=== PATIENT | female | born 1955 | race Caucasian/White ===

== ENCOUNTER → 2016-10-04 | Outpatient (CLI) | payer OTHER ==
--- NOTE | 2016-10-04 13:56 | DIAGNOSTIC IMAGING REPORT ---
PET/CT CLINICAL HISTORY: Solitary pulmonary nodule. TECHNIQUE: A PET/CT was performed from the skull base through the upper thighs following intravenous injection of 12.89 mCi of F 18 FDG IV. The injection was performed at 8:23 AM on October 04, 2016 and imaging began at 9:26 AM on October 04, 2016. Unenhanced CT was performed for attenuation correction purposes and anatomic localization. CT DOSE: 551.55 mGycm COMPARISON STUDY: None. FINDINGS: Head and neck: No abnormal FDG uptake is identified within the neck. There is no cervical lymphadenopathy. Chest: No thoracic lymphadenopathy is present. There is no abnormal FDG uptake within the chest. Multiple pulmonary nodules are noted, the largest of which is a 1.4 cm left lower lobe nodule shown on image 110. Additional nodules include a 7 mm left lower lobe nodule shown image 105, a 5 mm right lower lobe nodule shown on image 105 and a 6 mm right upper lobe nodule shown on image 81. None of these nodules have FDG uptake. Abdomen and Pelvis: No abnormal FDG uptake is identified within the abdomen or the pelvis. There is no abdominal or pelvic lymphadenopathy. Musculoskeletal: No suspicious skeletal uptake is identified. IMPRESSION: No FDG uptake within numerous pulmonary nodules which measure up to 1.4 cm. The lack of FDG uptake decreases the likelihood of metastatic disease. These nodules are indeterminate but likely benign. A follow-up chest CT in 6 months to ensure resolution could be obtained. Electronically signed by: Pernell Ware M.D. 10/04/2016 1:55 PM Dictated Date/Time: 10/04/2016 10:48 AM
== END | disposition home or self-care (01) ==
LOC: C.PET 07:34
PROVIDERS: ATTEND Physician Assistant
DX: R91.1 Solitary pulmonary nodule (principal); Z77.22 Contact with and (suspected) exposure to environmental tobacco smoke (acute) (chronic)